=== PATIENT | female | born 1940 | race Caucasian/White ===

== ENCOUNTER 2021-01-20 22:47 | Emergency (ER) | payer MEDICARE, BC ==
[~2021-01-20 22:47] MED LIST: BENTYL 20MG TAB20 MG PO; KEFLEX CAP 500500 MG PO; ZOFRAN ODT 4 MG4 MG PO; ZOFRAN ODT 4 MG4 MG SL
[2021-01-20 23:21] LABS: HEMOGLOBIN 13.3 gm/dl (12.3-15.3); RED BLOOD COUNT 4.37 M/UL (4.00-5.10); WHITE BLOOD COUNT 11.6 K/UL (4.5-11.0)
[2021-01-20 23:53] LABS: BUN/CREATININE RATIO 14 (0-10)
[2021-01-21] MEDS ORDERED: ZOFRAN ODT 4 MG4 MG SL (03:01)
== END 2021-01-21 02:34 | disposition home or self-care (01) ==
LOC: ER1 22:47
PROVIDERS: Emergency Medicine
DX: R11.2 Nausea with vomiting, unspecified (principal); N18.9 Chronic kidney disease, unspecified; Z20.822 Contact with and (suspected) exposure to COVID-19
CPT/HCPCS: 70450; 71045; 80053; 81001; 82550; 82553; 83605; 83690; 83874; 84484; 85025; 87040; 87086; 93005; 96374; 99284; J2405; J7030; U0002